=== PATIENT | male | born 2000 ===

== ENCOUNTER 2019-07-29 22:18 | Emergency (ER) | payer MEDICAID, SELFPAY ==
[2019-07-29 22:28] VITALS: BP 116/82; PULSE 90; RESP 14; TEMP 36.9; O2SAT 99; BMI 20.7
[2019-07-29 22:37] LABS: Add Manual Diff / Slide Review NO; Basophils Absolute Auto 100 /uL (0-100); Basophils Percent Auto 0.8 % (0-2); Eosinophils Absolute Auto 200 /uL (0-450); Eosinophils Percent Auto 1.9 % (2-4); Hematocrit 47.4 % (41-53); Hemoglobin 16.1 g/dL (13.5-17.5); Lymphocytes Absolute Auto 3700 /uL (1100-4500); Lymphocytes Percent Auto 43.1 % (25-40); Mean Corpuscular Hemoglobin 31.9 PG (26-34); Mean Corpuscular Volume 93.8 fL (80-100); Monocytes Absolute Auto 700 /uL (0-900); Monocytes Percent Auto 7.7 % (3-14); Neutrophils Absolute Auto 4000 /uL (1500-7000); Neutrophils Percent Auto 46.5 % (50-75); Platelet Count 320 X10^3/uL (150-400); Red Blood Cell Count 5.05 X10^6/uL (4.5-5.9); Red Cell Distribution Width 14.6 % (11.6-14.8); White Blood Cell Count 8.5 X10^3/uL (4.5-11.0)
--- NOTE | 2019-07-29 22:44 | PC.NURSE ---
ems reports patient required one amp of d50 to correct a blood sugar of 46. Patient glucose rechecked at 240s. no mental status change. EMS then gave 1mg of narcan with response, patient mental status recovered to sleepy. EMS reports they found patient had broken into mothers house and consumes approximatley 26 morphone pills. No strength noted. Upon arrival patient stated to this nurse he intends to kill himself by drinking himself to . Patient will not comment on tonights attempt, he closes his eyes and becomes silent when asked about what happened tonight. Pt did state he has had a plan to drink self to for some time and has been drinking heavily in an attempt to succeed with plan.
[2019-07-29 22:47] LABS: Alanine Aminotransferase 21 IU/L (<50); Albumin 5.1 g/dL (3.5-5.0); Albumin Globulin Ratio 1.5 (1.0-2.8); Alkaline Phosphatase 105 U/L (38-126); Aspartate Aminotransferase 44 IU/L (17-59); Bilirubin Total 0.4 mg/dL (0.2-1.3); Blood Urea Nitrogen 9 mg/dL (9-20); Calcium 9.4 mg/dL (8.4-10.2); Carbon Dioxide 30 mmol/L (22-32); Chloride 104 mmol/L (98-107); Estimated Glomerular Filt Rate > 60.0 mL/min (>60); Globulin 3.4 g/dL (1.7-4.1); Glucose 70 mg/dL (70-100); HEMOLYSIS < 15 (0-50); Potassium 3.9 mmol/L (3.4-5.1); Sodium 147 mmol/L (137-145); Total Protein 8.5 g/dL (6.3-8.2)
[2019-07-29 22:53] LABS: Ethanol (ETOH) 333 mg/dL
[2019-07-29 22:54] LABS: Acetaminophen < 10 ug/mL (10-30); Salicylate < 1.0 mg/dL (<20)
--- NOTE | 2019-07-29 22:54 | PC.NURSE ---
1:1 at bedside due to ligature risks in trauma 1.
--- NOTE | 2019-07-29 22:55 | PC.NURSE ---
at bedside, frequent talking with patient.
[2019-07-29 22:57] VITALS: BP 116/82; PULSE 84; RESP 14; O2SAT 99
--- NOTE | 2019-07-29 22:59 | ED_ITS ---
HPI - Psych <James Magallanes DO - Last Filed: 08/04/19 17:58> General Chief Complaint: Psychiatric Symptoms Stated Complaint: Overdose/SI Time Seen by Provider: 07/29/19 22:21 Source: EMS Mode of arrival: EMS Limitations: altered mental status History of Present Illness HPI Narrative: Patient is a 19-year-old male who arrived by EMS for evaluation overdose. Is reported by EMS that the patient had been drinking this evening. He stated that he when broken to his mother's house in took moves reported to be 26 morphine pills. Unsure as the exact amount. Unsure as the does as well. Mother is not at bedside. EMS run able to find any pill bottles. It was reported that initially he had an episode of hypoglycemia with blood sugar in the 40s. He did receive an amp D50 prior to arrival which improved his blood sugar to the 200. This apparently did not resolve his somnolence. He did receive 1 mg of intranasal Narcan which potentially improved his symptoms somewhat. Is reported by EMS that they were told this was an attempt to hurt himself. We're unsure as to who called EMS we think it was the patient's mother. Patient is unable/unwilling to provide any HPI Review of Systems <DO Maddy Brunson Last Filed: 08/04/19 17:58> Review of Systems ROS Unobtainable: Unobtainable due to mental status/LOC Patient History <James Magallanes DO - Last Filed: 08/04/19 17:58> Medical History Unable to acculturate (Acute) Social History Smoking Status: Current every day smoker Smoking Status: Current every day smoker tobacco type: cigarettes alcohol intake frequency: 3 or more drinks per day Alcohol type: beer, wine and hard liquor Substance Use Type: marijuana Exam <James Magallanes DO - Last Filed: 08/04/19 17:58> Initial Vital Signs Initial Vital Signs: Vital Signs Temperature 98.4 F 07/29/19 22:28 Pulse Rate 90 07/29/19 22:28 Respiratory Rate 14 07/29/19 22:28 Blood Pressure 116/82 07/29/19 22:28 Pulse Oximetry 99 07/29/19 22:28 Const General: well developed, well groomed and No acute distress Limitations: altered mental status HENMS Head: normal to inspection and normocephalic Eyes Pupils: PERRL, dilated bilaterally (6 mm) and pupil size bilaterally 6 Resp Effort & Inspection: normal respiratory effort Auscultation: clear to auscultation bilaterally Cardio Rate: regular rate Rhythm: regular rhythm GI Inspection: non-distended Palpation: soft Skin Lesions: no lesions Rashes: no rashes Neuro Other: Patient did spontaneously move all 4 extremities. He is maintaining his airway. Upon questioning he stated that he was in the emergency department. He stated the year was 2019 (actual year 2018). When asked if he took anything this evening he said no. When asked if he drank any alcohol this evening his head no. When asked if he was suicidal he said no. Extrem General: capillary refill normal Psych Appearance: grossly normal and well kempt <Shazia Nguyễn MD - Last Filed: 07/30/19 13:40> Initial Vital Signs Initial Vital Signs: Vital Signs Temperature 98.4 F 07/29/19 22:28 Pulse Rate 90 07/29/19 22:28 Respiratory Rate 14 07/29/19 22:28 Blood Pressure 116/82 07/29/19 22:28 Pulse Oximetry 99 07/29/19 22:28 Scores <James Magallanes DO - Last Filed: 08/04/19 17:58> GCS Nebo coma scale eye opening: To sound Nebo coma scale verbal response: Confused Best coma scale motor response: Obey commands Nebo coma scale total score: 13 Course <James Magallanes DO - Last Filed: 08/04/19 17:58> Orders Ordered: ED Orders 07/30/19 06:30 Ethanol (ETOH) Stat Vital Signs Vital signs: Vital Signs - 8 hr 07/30/19 08:01 Temperature 98.1 F Pulse Rate 71 Respiratory Rate 16 Blood Pressure [Right Arm] 119/75 Restraint Cirz-zu-Uvsu evaluation Date: 07/29/19 Time: 22:15 Mental Status Exam Patient Appearance: Disheveled Level of Consciousness: Disoriented, Drowsy and Sedated Speech Pattern: Soft-Spoken Mood Description: Calm Ability to Follow Directions: Poor Thought Process:: Other (Unable to evaluate) Physical Status Respirations: Normal respiratory rate Cardiac: Regular Rate Circulation: Moves all extremities Assessment of Situation Behavior necessitating restraint: Confusion Other risks: Seclusion, unlocked Restraint risks explained to patient: No Restraint risks explained to family: No <Shazia Nguyễn MD - Last Filed: 07/30/19 13:40> Orders Ordered: ED Orders 07/30/19 06:30 Ethanol (ETOH) Stat Reevaluation(s) Reevaluation #1: Care transferred at shift change. Alcohol level returns is 120. Patient is calm and awaiting social work consult for disposition help Time: 06:55 Reevaluation #2: Discussion this morning with Tony. He has very little recollection of last night. He is very clear that he is not suicidal at this time. He notes that he does have issues with drinking too much alcohol and a number of years ago did go through alcohol rehab. The report given to me was that he went to his mother's house and took a number of her morphine. He states that he actually used heroin last night. He states that ?opioids are not my thing? and I watched him turn my sister into somebody I do not even know. He does not believe that he has been on antidepressants in the past and when he worked at [employer] (a period where he was clean and sober from alcohol marijuana and opiates) that he talked with medical professional and the possibility of bipolar disorder was entertained. He does have access to care through this window [facility]. He has never seen a psychiatrist that he is aware of. Would like to have him talk with our social media marketing specialist this morning. As he is absolutely not suicidal and quite remorseful this morning I do not think that in patient care will be required. I do think that outpatient psychiatric follow-up as well as addiction follow-up would be very appropriate and quite helpful for this young man Time: 09:06 Reevaluation #3: Care is reviewed with social media marketing specialist. He is medically cleared. He is talking with the social media marketing specialist currently Time: 09:07 Vital Signs Vital signs: Vital Signs - 8 hr 07/30/19 08:01 Temperature 98.1 F Pulse Rate 71 Respiratory Rate 16 Blood Pressure [Right Arm] 119/75 MDM - Psych <James Magallanes DO - Last Filed: 08/04/19 17:58> Lab Data Attestation: I reviewed the patient's lab results. Result diagrams: 07/29/19 22:00 12/13/19 22:00 Labs: Lab Results 07/29/19 07/29/19 07/29/19 Range/Units 22:00 22:00 22:00 WBC 8.5 (4.5-11.0) X10^3/uL RBC 5.05 (4.5-5.9) X10^6/uL Hgb 16.1 (13.5-17.5) g/dL Hct 47.4 (41-53) % MCV 93.8 (80-100) fL MCH 31.9 (26-34) PG MCHC 34.0 (30-36) % RDW 14.6 (11.6-14.8) % Plt Count 320 (150-400) X10^3/uL Neut % (Auto) 46.5 L (50-75) % Lymph % (Auto) 43.1 H (25-40) % Bracken % (Auto) 7.7 (3-14) % Eos % (Auto) 1.9 L (2-4) % Baso % (Auto) 0.8 (0-2) % Neut # (Auto) 4000 (7775-2590) /uL Lymph # (Auto) 3700 (3028-2664) /uL Bracken # (Auto) 700 (0-900) /uL Eos # (Auto) 200 (0-450) /uL Baso # (Auto) 100 (0-100) /uL Sodium 147 H (137-145) mmol/L Potassium 3.9 (3.4-5.1) mmol/L Chloride 104 (98-107) mmol/L Carbon Dioxide 30 (22-32) mmol/L BUN 9 (9-20) mg/dL Creatinine 0.90 (0.66-1.25) mg/dL Estimated GFR > 60.0 (>60) mL/min BUN/Creatinine Ratio 10.0 (6-22) Glucose 70 (70-100) mg/dL Calcium 9.4 (8.4-10.2) mg/dL Total Bilirubin 0.4 (0.2-1.3) mg/dL AST 44 (17-59) IU/L ALT 21 (<50) IU/L Alkaline Phosphatase 105 (38-126) U/L Total Protein 8.5 H (6.3-8.2) g/dL Albumin 5.1 H (3.5-5.0) g/dL Globulin 3.4 (1.7-4.1) g/dL Albumin/Globulin Ratio 1.5 (1.0-2.8) TSH 0.80 (0.47-4.68) uIU/mL Salicylates (<20) mg/dL U Morph 300 ng/mL cutoff (Negative) Ur Oxycodone Screen (Negative) Urine Methadone Screen (Negative) Acetaminophen < 10 L (10-30) ug/mL Ur Barbiturates Screen (Negative) U Tricyclic Antidepress (Negative) Ur Phencyclidine Scrn (Negative) Ur Amphetamines Screen (Negative) U Methamphetamines Scrn (Negative) Ur MDMA Scrn (Ecstasy) (Negative) U Benzodiazepines Scrn (Negative) Urine Cocaine Screen (Negative) U Marijuana (THC) Screen (Negative) Ethyl Alcohol ( - 10) mg/dL 07/29/19 07/29/19 07/30/19 Range/Units 22:00 23:40 06:30 WBC (4.5-11.0) X10^3/uL RBC (4.5-5.9) X10^6/uL Hgb (13.5-17.5) g/dL Hct (41-53) % MCV (80-100) fL MCH (26-34) PG MCHC (30-36) % RDW (11.6-14.8) % Plt Count (150-400) X10^3/uL Neut % (Auto) (50-75) % Lymph % (Auto) (25-40) % Bracken % (Auto) (3-14) % Eos % (Auto) (2-4) % Baso % (Auto) (0-2) % Neut # (Auto) (1982-0824) /uL Lymph # (Auto) (3445-0731) /uL Bracken # (Auto) (0-900) /uL Eos # (Auto) (0-450) /uL Baso # (Auto) (0-100) /uL Sodium (137-145) mmol/L Potassium (3.4-5.1) mmol/L Chloride (98-107) mmol/L Carbon Dioxide (22-32) mmol/L BUN (9-20) mg/dL Creatinine (0.66-1.25) mg/dL Estimated GFR (>60) mL/min BUN/Creatinine Ratio (6-22) Glucose (70-100) mg/dL Calcium (8.4-10.2) mg/dL Total Bilirubin (0.2-1.3) mg/dL AST (17-59) IU/L ALT (<50) IU/L Alkaline Phosphatase (38-126) U/L Total Protein (6.3-8.2) g/dL Albumin (3.5-5.0) g/dL Globulin (1.7-4.1) g/dL Albumin/Globulin Ratio (1.0-2.8) TSH (0.47-4.68) uIU/mL Salicylates < 1.0 (<20) mg/dL U Morph 300 ng/mL cutoff Positive H (Negative) Ur Oxycodone Screen Negative (Negative) Urine Methadone Screen Negative (Negative) Acetaminophen (10-30) ug/mL Ur Barbiturates Screen Negative (Negative) U Tricyclic Antidepress Negative (Negative) Ur Phencyclidine Scrn Negative (Negative) Ur Amphetamines Screen Negative (Negative) U Methamphetamines Scrn Positive H (Negative) Ur MDMA Scrn (Ecstasy) Negative (Negative) U Benzodiazepines Scrn Negative (Negative) Urine Cocaine Screen Negative (Negative) U Marijuana (THC) Screen Positive H (Negative) Ethyl Alcohol 333 H 120 H ( - 10) mg/dL ECG Data Attestation: I personally reviewed and interpreted this ECG as follows: Prior ECG tracings: not available for review Interpretation: Sinus rhythm Ventricular rate 72 Normal axis Normal QRS Early repolarization Normal QTC MDM Narrative Medical decision making narrative: Difficult to obtain history from the patient. Unsure if this was his willingness/ability to participate. He was maintaining his airway. He did have dilated pupils which does point against a opioid ingestion. UDS is positive for methamphetamine and morphine and THC. Alcohol level is also elevated. She has no other signs of toxic ingestion. I did discuss the case with poison Control. They recommended observing the patient who is no longer somnolent. After being in the emergency department for short time patient did become more arousable. He was talking with the sitter. To the circumstances why he was here restraint orders were placed. Continue to observe until his alcohol level decreases. Social work consult placed. Care turned over to day provider change of shift follow-up. Patient has had discussions with nursing staff. He stated that he does not remember last evening. He stated he does not remember going to his mother's house. He stated that his plan for hurting himself in the past has been to ?drink myself to ?he states that last night he sat down to start drinking and that's the remembers. <Shazia Nguyễn MD - Last Filed: 07/30/19 13:40> Lab Data Labs: Lab Results 07/29/19 07/29/19 07/29/19 Range/Units 22:00 22:00 22:00 WBC 8.5 (4.5-11.0) X10^3/uL RBC 5.05 (4.5-5.9) X10^6/uL Hgb 16.1 (13.5-17.5) g/dL Hct 47.4 (41-53) % MCV 93.8 (80-100) fL MCH 31.9 (26-34) PG MCHC 34.0 (30-36) % RDW 14.6 (11.6-14.8) % Plt Count 320 (150-400) X10^3/uL Neut % (Auto) 46.5 L (50-75) % Lymph % (Auto) 43.1 H (25-40) % Bracken % (Auto) 7.7 (3-14) % Eos % (Auto) 1.9 L (2-4) % Baso % (Auto) 0.8 (0-2) % Neut # (Auto) 4000 (9831-0018) /uL Lymph # (Auto) 3700 (6131-7762) /uL Bracken # (Auto) 700 (0-900) /uL Eos # (Auto) 200 (0-450) /uL Baso # (Auto) 100 (0-100) /uL Sodium 147 H (137-145) mmol/L Potassium 3.9 (3.4-5.1) mmol/L Chloride 104 (98-107) mmol/L Carbon Dioxide 30 (22-32) mmol/L BUN 9 (9-20) mg/dL Creatinine 0.90 (0.66-1.25) mg/dL Estimated GFR > 60.0 (>60) mL/min BUN/Creatinine Ratio 10.0 (6-22) Glucose 70 (70-100) mg/dL Calcium 9.4 (8.4-10.2) mg/dL Total Bilirubin 0.4 (0.2-1.3) mg/dL AST 44 (17-59) IU/L ALT 21 (<50) IU/L Alkaline Phosphatase 105 (38-126) U/L Total Protein 8.5 H (6.3-8.2) g/dL Albumin 5.1 H (3.5-5.0) g/dL Globulin 3.4 (1.7-4.1) g/dL Albumin/Globulin Ratio 1.5 (1.0-2.8) TSH 0.80 (0.47-4.68) uIU/mL Salicylates (<20) mg/dL U Morph 300 ng/mL cutoff (Negative) Ur Oxycodone Screen (Negative) Urine Methadone Screen (Negative) Acetaminophen < 10 L (10-30) ug/mL Ur Barbiturates Screen (Negative) U Tricyclic Antidepress (Negative) Ur Phencyclidine Scrn (Negative) Ur Amphetamines Screen (Negative) U Methamphetamines Scrn (Negative) Ur MDMA Scrn (Ecstasy) (Negative) U Benzodiazepines Scrn (Negative) Urine Cocaine Screen (Negative) U Marijuana (THC) Screen (Negative) Ethyl Alcohol ( - 10) mg/dL 07/29/19 07/29/19 07/30/19 Range/Units 22:00 23:40 06:30 WBC (4.5-11.0) X10^3/uL RBC (4.5-5.9) X10^6/uL Hgb (13.5-17.5) g/dL Hct (41-53) % MCV (80-100) fL MCH (26-34) PG MCHC (30-36) % RDW (11.6-14.8) % Plt Count (150-400) X10^3/uL Neut % (Auto) (50-75) % Lymph % (Auto) (25-40) % Bracken % (Auto) (3-14) % Eos % (Auto) (2-4) % Baso % (Auto) (0-2) % Neut # (Auto) (9449-1506) /uL Lymph # (Auto) (7756-3017) /uL Bracken # (Auto) (0-900) /uL Eos # (Auto) (0-450) /uL Baso # (Auto) (0-100) /uL Sodium (137-145) mmol/L Potassium (3.4-5.1) mmol/L Chloride (98-107) mmol/L Carbon Dioxide (22-32) mmol/L BUN (9-20) mg/dL Creatinine (0.66-1.25) mg/dL Estimated GFR (>60) mL/min BUN/Creatinine Ratio (6-22) Glucose (70-100) mg/dL Calcium (8.4-10.2) mg/dL Total Bilirubin (0.2-1.3) mg/dL AST (17-59) IU/L ALT (<50) IU/L Alkaline Phosphatase (38-126) U/L Total Protein (6.3-8.2) g/dL Albumin (3.5-5.0) g/dL Globulin (1.7-4.1) g/dL Albumin/Globulin Ratio (1.0-2.8) TSH (0.47-4.68) uIU/mL Salicylates < 1.0 (<20) mg/dL U Morph 300 ng/mL cutoff Positive H (Negative) Ur Oxycodone Screen Negative (Negative) Urine Methadone Screen Negative (Negative) Acetaminophen (10-30) ug/mL Ur Barbiturates Screen Negative (Negative) U Tricyclic Antidepress Negative (Negative) Ur Phencyclidine Scrn Negative (Negative) Ur Amphetamines Screen Negative (Negative) U Methamphetamines Scrn Positive H (Negative) Ur MDMA Scrn (Ecstasy) Negative (Negative) U Benzodiazepines Scrn Negative (Negative) Urine Cocaine Screen Negative (Negative) U Marijuana (THC) Screen Positive H (Negative) Ethyl Alcohol 333 H 120 H ( - 10) mg/dL Discharge Plan Departure Patient Disposition: Home Clinical Impression: Suicidal ideation, Opiate use, Alcohol use disorder Discharge Date/Time: 07/30/19 10:07 Instructions: Alcohol Use Disorder, DI for Suicidal Ideation-Adult Activity Restrictions/Additional Instructions: I am glad you were brought to the emergency room last night. You did almost . You need to consider getting into a treatment program to stop drinking alcohol completely. We talked about the affects of opiates on other family members and had devastating it was. You need to avoid opiates at all cost. Here marijuana use may actually be contributing to your depression and he may find that you feel better think better and function better if you avoid marijuana altogether. You do need to follow-up with your primary care doctor. Seeing a psychiatrist or therapist sound like it would be very helpful for you and your primary care doctor can help you arrange that. Please consider alcohol and marijuana addiction treatment. [facility]Ur social media marketing specialist has given you a number of options to contact for help. Our PIT team will also give you a call this afternoon to check on you and make sure things are going OK> Is you are thinking about killing yourself or hurting yourself in any way, you're welcome to return to the emergency department at any time
--- NOTE | 2019-07-29 23:05 | PC.NURSE ---
2 patient belong bags and 1 patient backpack placed in secure cabinet and labled with patient stickers.
--- NOTE | 2019-07-29 23:06 | PC.NURSE ---
patient responding to questions and following directions well. denies needs at this time. Remains on monitor with etco2. 1:1 at bedside.
--- NOTE | 2019-07-29 23:23 | PC.NURSE ---
patient remains arrousable by voice. maintaining own airway, on etco2, sitter at bedside
[2019-07-29 23:28] VITALS: BP 101/78; PULSE 88; RESP 14; O2SAT 99
--- NOTE | 2019-07-29 23:36 | PC.NURSE ---
patient in trauma one, requiring continous monitoring
--- NOTE | 2019-07-29 23:42 | PC.NURSE ---
patient stood at bedside and used urinal. Sample sent to lab
[2019-07-29 23:50] LABS: Ur Creatinine Normal (Normal); Ur Specific Gravity Normal (Normal); Urine pH Normal (Normal)
[2019-07-29 23:51] LABS: UR Morphine/Opiate cutoff 300 Positive (Negative); Urine Amphetamines Negative (Negative); Urine Barbiturates Negative (Negative); Urine Benzodiazepines Negative (Negative); Urine Cocaine Negative (Negative); Urine MDMA Negative (Negative); Urine Methadone Negative (Negative); Urine Methamphetamines Positive (Negative); Urine Oxycodone Negative (Negative); Urine Phencyclidine Negative (Negative); Urine Tetrahydrocannabinol Positive (Negative); Urine Tricyclic Antidepressant Negative (Negative)
--- NOTE | 2019-07-29 23:51 | PC.NURSE ---
patient sitting upright and answering staff questions.
--- NOTE | 2019-07-29 23:55 | PC.NURSE ---
patient gcs 15, etco2 removed per patient request for comfort, patient remains on pulse ox, sitter at bedisde. patient denies needs at this time.
[2019-07-30] VITALS: BP 108/78; PULSE 89; RESP 13; O2SAT 100
[2019-07-30 00:30] VITALS: BP 118/96; PULSE 94; RESP 14; O2SAT 98
--- NOTE | 2019-07-30 00:54 | PC.NURSE ---
patient fully awake talking to sitter at bedside, remains on monitor.
[2019-07-30 01:00] VITALS: BP 128/87; PULSE 78; RESP 16; O2SAT 97
--- NOTE | 2019-07-30 01:06 | PC.NURSE ---
Patient asked this aid how he arrived to the hospital. When this aid told the patient he arrived via ambulance and was given narcan, patient said i guess my plan didn't work.
[2019-07-30 01:30] VITALS: BP 117/75; PULSE 77; RESP 14; O2SAT 97
--- NOTE | 2019-07-30 01:33 | PC.NURSE ---
patient remains fully alert. Talking and laughing with sitter. Provider notified and OK'd move to room 13.
--- NOTE | 2019-07-30 01:43 | PC.NURSE ---
patient IV removed and patient ambulated to room 13. patient is cooperative, calm and follows directions well. Patient is fully alert, sitter at doorway.
--- NOTE | 2019-07-30 01:55 | PC.NURSE ---
Patient stated he thinks he has no purpose on this earth and just doesn't need to be here.
--- NOTE | 2019-07-30 02:45 | PC.NURSE ---
seclution continued. sitter at doorway. patient resting on matress, Provided a sandwich and chocolate milk.
--- NOTE | 2019-07-30 04:13 | PC.NURSE ---
patient resting on matress, denies needs at this time, sitter at doorway
--- NOTE | 2019-07-30 05:00 | PC.NURSE ---
poison control called back and updated on patient condition. Poison control advised they are closing their case.
--- NOTE | 2019-07-30 06:34 | PC.NURSE ---
continuation of unlocked seclution, sitter at door, Denies needs at this time.
--- NOTE | 2019-07-30 06:36 | PC.NURSE ---
etoh repeat drawn by lab
[2019-07-30 06:46] LABS: Ethanol (ETOH) 120 mg/dL
[2019-07-30 08:01] VITALS: BP 119/75; PULSE 71; RESP 16; TEMP 36.7
--- NOTE | 2019-07-30 08:04 | PC.NURSE ---
Dr is in talking to will he is calm and polite
--- NOTE | 2019-07-30 08:30 | PC.NURSE ---
patient is on a mattress on the floor trying to sleep
--- NOTE | 2019-07-30 09:08 | PC.NURSE ---
still with accounts administrator
--- NOTE | 2019-07-30 09:18 | PC.NURSE ---
patient up to bathroom
--- NOTE | 2019-07-30 10:01 | PC.NURSE ---
patient discharged by Bishop Barroso
--- NOTE | 2019-07-30 12:19 | CM.SWNOTE ---
Patient is a 19 year old who was admitted to [facility] ER on 07/29/19 late at night and KNIFE CUTTER consult ordered due to pt's arrival with overdose and possible suicidal ideation. Pt's UDS was positive for methamphetamine, morphine, THC, alcohol of .120. Discharge Planning/Care Management ED Psychiatric Symptoms Assessment Start: 07/29/19 22:34 Freq: Status: Discharge Protocol: Document 07/29/19 22:15 KJS (Rec: 07/29/19 22:54 KJS [id number]) Psychiatric Symptoms Assessment Symptoms/Complaint Suicidal Ideation Onset chronic, on going Duration Getting Worse History Of Same No Context Unknown Improves With Nothing Worsens With Nothing Associated Symptoms Denies Other Symptoms If Self Harm Admits Thoughts of Self Harm, Has Acted on Plan,Intentional Overdose Level of Consciousness Drowsy,Follows Commands Patient Orientation Name,Age,Birthday,Month,Place Patient Behavior/Mood Flat Ability to Follow Directions Good Patient Cognition Impaired No Affect Description Blunted,Calm Patient Appearance Unkempt Hallucination Type None Suicidal Ideation Constant Suicide Plan Clear,Feasible Homicidal Ideation None Nausea/Vomiting None 07/29/19 22:54 Nurse Note by Nik Julien 1:1 at bedside due to ligature risks in trauma 1. Initialized on 07/29/19 22:54 - END OF NOTE Document 07/30/19 01:51 KJS (Rec: 07/30/19 01:56 KJS [id number]) Psychiatric Symptoms Assessment Symptoms/Complaint Suicidal Ideation Onset chronic Duration Getting Worse Context Unknown Improves With Nothing Worsens With Alcohol If Self Harm Admits Thoughts of Self Harm, Has Acted on Plan,Has Plans, Intentional Overdose Details of Plan patient reports he plans on drinking self to . States today the last thing he remembers is looking at a big ol bottle and thinking let's go for it. Pt does not recall taking pills at his mothers house where he was found by EMS. Level of Consciousness Alert,Appropriate,Awake, Follows Commands Patient Orientation Name,Age,Birthday,Month,Date, Year,Day of Week,Place, Situation Patient Behavior/Mood Cooperative,Flat Ability to Follow Directions Excellent Patient Cognition Impaired No Affect Description Calm,Flat Patient Appearance Unkempt Hallucination Type None Feelings of Hopelessness Yes Suicidal Ideation Constant Suicide Plan Clear,Feasible Homicidal Ideation None 07/30/19 01:55 Nurse Note by Nik Julien Patient stated he thinks he has no purpose on this earth and just doesn't need to be here. Initialized on 07/30/19 01:55 - END OF NOTE Document 07/30/19 05:12 REID (Rec: 07/30/19 05:12 ABAS [email or web address]) Psychiatric Symptoms Assessment Patient Behavior/Mood Asleep KNIFE CUTTER - Paper Machine Back Tender Assessment Start: 07/30/19 11:57 Freq: Status: Active Protocol: Document 07/30/19 11:58 BF (Rec: 07/30/19 12:19 BF [id number]) KNIFE CUTTER/Paper Machine Back Tender Assessment Start date 07/30/19 Visit Start Time 08:45 End date 07/30/19 Visit End Time 09:15 Total time Care Management spent on 60 min patient visit-in minutes Presenting Problem Patient arrived to the ER via EMS due to overdose and being obtunded. Precipitating Event(s) Patient has a hx of alcohol abuse for many years and began the night attempting to drink a bottle of hard alcohol and does not remember going to his mother's house and taking some of her morphine medication along with THC and heroin. Current Behavioral Health Provider(s) none Include Facility, Provider, Ph. # Rehab Facilities? ((Date(s), Location(s) Patient confirms that he has a ) hx of multiple outpt CD tx including Intensive Outpt at [facility] and one episode of Inpt CD treatment for alcohol abuse. Patient states it has been about a year since he has been enrolled in outpt CD tx and denies any current mental health counseling. History of Withdrawal? Seizures? no Longest Period of Sobriety about 6 months after Inpt CD tx Psychosocial Information Patient resides with his father and Uncle and states that he feels they are supportive but also drink. Pt states he has a strained relationship with his mother who also lives locally. Support System(s) Patient feels his family is supportive and he had a socially responsible investment adviser when he was under the age of 16 who was very supportive and helpful and pt has some friends but not many who are a good influence. School/Work Patient denies and states he does not drive but very capable with the public bus system for transportation. Legal Matters - Outstanding Issues Denies Orientation (Person/Place/Time) Alert and oriented x2 Affect Somewhat flat, somewhat depressed in mood. Thought Content - Specify/Describe Patient is vague in some of Obsessions, Delusions, Hallucinations his answers but able to participate in goal directed discussion. Speech (Nzvtsy-Whzp-Zvqajns-Rapid-Soft- Speech is normal and soft Loud-Pressured) Insight (Present-Partially Present- Patient seems to have some Impaired) insight and states I'm just tired of feeling so sorry for myself and getting into this situation over and over. Pt seems to be at the contemplative stage. Suicidal Ideation (Plan) No Homicidal Ideation (Plan) No Comment Patient denies suicidal ideation and states that he is mostly just sick of feeling sorry for himself but does not feel that he wants his life to end, just get better. Intervention KNIFE CUTTER met bedside with pt in ER room 13 and explained role and pt appears somewhat disheveled and unkept with poor oral hygiene but alert and oriented and able to participate in goal directed discussion. Pt states that he has been drinking from a young age and has participated in multiple outpt CD treatment programs and one Inpt CD tx. Pt denies suicidal ideation and does not remember having intent of when he began drinking and does not remember taking medications from his mother. SW discussed options of Inpt CD tx, outpt Intensive CD tx, detox/crisis stabilization. Pt states that he feels he needs Inpt tx and that outpt tx likely not meet his needs at this time but pt not willing for SW to initiate Inpt tx from the hospital setting. Pt states that he feels that he is to the point that he had been when he sought Inpt CD tx previously and feels capable of getting himself into Inpt tx. SW provided the list of CD treatment providers and contact information towards getting a CD assessment and Inpt tx and pt very appreciative. SW discussed [facility] option of a team meeting with him after d/ c to help coordinate the care and pt declines. He states he has Medicaid and does not think he has [place] insurance as he is [facility] [place]. Pt agreeable though with SW calling [facility] for a follow up phone call after he gets home. RA Plan ANITA discussed with and agreeable that pt is medically stable for d/c home with resources provided for pt to follow up with after discharge home. [facility] to make follow up phone call tonight to check in on pt and SW completed Crisis Alert to [facility] in case pt relapses again in the next couple days. Pt aware that his overdose was medically concerning and serious and he is aware that going home prior to setting up treatment or making phone calls he is at a higher risk of relapse and cycle. Pt does not have cell phone and states he does not have transport home. As no other contacts able to be made for a ride and no available bus passess, SW agreed to sign Taxi Voucher for [facility] to take pt home as this was a barrier to his discharge.
== END 2019-07-30 10:07 | disposition home or self-care (01) ==
PROVIDERS: Emergency Medicine; Emergency Provider Emergency Medicine
DX: R45.851 Suicidal ideations (principal); Z79.891 Long term (current) use of opiate analgesic; F10.10 Alcohol abuse, uncomplicated; F19.90 Other psychoactive substance use, unspecified, uncomplicated
CPT/HCPCS: 36415; 80053; 80305; 80320; 80329; 84443; 85025; 93005; 93010; 99285; G0480